=== PATIENT | male | born 1995 | race Caucasian/White ===

== ENCOUNTER 2018-01-23 17:33 | Emergency (ER) | payer OTHER ==
[2018-01-23 17:34] VITALS: O2SAT 99
[2018-01-23] MEDS ORDERED: MORPHINE SULFATE 10 MG/ML SOL ONE (18:34)
[2018-01-23] MEDS ORDERED: SODIUM CHLORIDE 0.9% FLUSH 10 ML SOL IV PRN (18:37)
[2018-01-23] MEDS ORDERED: MORPHINE SULFATE 10 MG/ML SOL IV ONE (18:37)
[2018-01-23] MEDS ORDERED: ONDANSETRON HCL 4 MG/2 ML SOL ONE ×2 (18:38→19:49)
[2018-01-23] MEDS ORDERED: ONDANSETRON HCL 4 MG/2 ML SOL IV ONE ×2 (18:39→19:59)
[2018-01-23] MEDS ORDERED: TDAP VACCINE 0.5 ML SUS IM ONE ×2 (19:30→19:32)
[2018-01-23] MEDS ORDERED: HYDROMORPHONE HCL 2 MG/ML SOL ONE (19:49)
[2018-01-23] MEDS ORDERED: HYDROMORPHONE 1 MG/ML SYRINGE IV ONE (19:50)
[2018-01-23] MEDS ORDERED: CEFAZOLIN (PREMIX) 1 GM SOL IV ONE (19:53)
[2018-01-23] MEDS ORDERED: CEFAZOLIN SODIUM 1 GM PDS ONE (19:58)
[2018-01-23 20:08] VITALS: BP 156/73; PULSE 110; RESP 16; TEMP 98
== END 2018-01-23 20:07 | disposition short-term general hospital (02) | DRG 155 ==
LOC: ED 17:33
DX: S02.2XXA Fracture of nasal bones, initial encounter for closed fracture (principal); S02.32XA Fracture of orbital floor, left side, initial encounter for closed fracture; R00.0 Tachycardia, unspecified; S09.93XA Unspecified injury of face, initial encounter; R04.0 Epistaxis; R11.0 Nausea; V86.59XA Driver of other special all-terrain or other off-road motor vehicle injured in nontraffic accident, initial encounter; R40.2362 Coma scale, best motor response, obeys commands, at arrival to emergency department; R40.2142 Coma scale, eyes open, spontaneous, at arrival to emergency department; R40.2252 Coma scale, best verbal response, oriented, at arrival to emergency department
CPT/HCPCS: 70450; 70486; 72125; 90471; 90715; 96374; 96375; 99284; 99285; J0690; J1170; J2270; J2405